=== PATIENT | male | born 1985 | race Caucasian/White ===

== ENCOUNTER 2018-01-15 14:05 | Outpatient (CLI) | payer MEDICAID ==
--- NOTE | 2018-01-15 15:05 | RAD ---
MODIFIED BARIUM SWALLOW WITH SPEECH THERAPIST: COMPARISON: 11/22/11. HISTORY: Dysphagia oropharyngeal phase and feeding difficulties. FINDINGS/IMPRESSION: A modified barium swallow was performed by the speech therapist. No aspiration or penetration was se en during the examination. Please see dedicated speech therapy report for specific findings and evonne mmendations. POS: [facility]
== END 2018-01-15 14:06 | disposition home or self-care (01) ==
LOC: RAD 14:05
PROVIDERS: ATTEND Family Medicine
DX: R13.11 Dysphagia, oral phase (principal); R63.3 Feeding difficulties; F84.0 Autistic disorder; F79 Unspecified intellectual disabilities; G40.909 Epilepsy, unspecified, not intractable, without status epilepticus
CPT/HCPCS: 74230; G8996-GN-CJ; G8997-GN-CJ